=== PATIENT | female | born 1990 | race African-American/Black ===

== ENCOUNTER 2023-08-10 23:25 | Emergency (ER) | payer SELFPAY ==
[~2023-08-10] VITALS: Ht 170.2 cm; Wt 62.0 kg
[2023-08-10 23:29] VITALS: BP 132/70; PULSE 89; RESP 16; O2SAT 98
[2023-08-11 00:26] VITALS: TEMP 98.6
[2023-08-11] MEDS: ACETAMINOPHEN 325MG TABLET PO ONE (00:26)
== END 2023-08-11 01:01 | disposition home or self-care (01) ==
LOC: ER 23:25
DX: T59.3X3A Toxic effect of lacrimogenic gas, assault, initial encounter (principal); Z88.8 Allergy status to other drugs, medicaments and biological substances; Y08.89XA Assault by other specified means, initial encounter; Y93.9 Activity, unspecified; Y92.89 Other specified places as the place of occurrence of the external cause; Y99.8 Other external cause status
CPT/HCPCS: 71045; 99283